=== PATIENT | male | born 1965 | race Two or more races ===

== ENCOUNTER 2017-07-09 01:03 | Emergency (ER) | payer BC, MEDICAID | END 2017-07-09 06:56 | disposition home or self-care (01) | LOC: FTE 01:03 | DX: M54.2 Cervicalgia (principal); M25.511 Pain in right shoulder; M25.512 Pain in left shoulder; I10 Essential (primary) hypertension; F17.210 Nicotine dependence, cigarettes, uncomplicated; Z79.82 Long term (current) use of aspirin | CPT/HCPCS: 99284 ==

== ENCOUNTER 2018-01-02 21:27 | Emergency (ER) | payer BC ==
[2018-01-02] MEDS: AZITHROMYCIN 250 MG TAB PO (22:57)
[2018-01-02] MEDS: DOXYCYCLINE 100 MG TAB PO (22:57)
[2018-01-02] MEDS: KETOROLAC 30 MG INJ IM (22:58)
[2018-01-02] MEDS: CEFTRIAXONE 250 MG INJ IM (22:58)
[2018-01-02 23:12] LABS: URINE BLOOD (Dip) POC Trace-intact (NEGATIVE); URINE GLUCOSE (Dip) POC Negative (NEGATIVE); URINE KETONES (Dip) POC Negative (NEGATIVE); URINE LEUKOCYTE EST (Dip) POC 2+ (NEGATIVE); URINE NITRITE (Dip) POC Positive (NEGATIVE); URINE TOTAL PROTEIN POC Negative (NEGATIVE)
[2018-01-02 23:12] LABS: URINE PH (Dip) POC 7.5 (5.0-8.5)
[2018-01-02 23:26] LABS: ADD UMIC YES; UR ASCORBIC ACID NEGATIVE (NEGATIVE); UR BACTERIA FEW /HPF (NONE SEEN); UR BILIRUBIN (Dip) NEGATIVE (NEGATIVE); UR BLOOD (Dip) NEGATIVE (NEGATIVE); UR CLARITY SLIGHTLY CLOUDY (CLEAR); UR COLOR YELLOW (YELLOW); UR GLUCOSE (Dip) NEGATIVE (NEGATIVE); UR KETONES (Dip) NEGATIVE (NEGATIVE); UR LEUKOCYTE ESTERASE (Dip) 3+ Leu/ul (NEGATIVE); UR NITRITE (Dip) POSITIVE (NEGATIVE); UR RBC 4 /HPF (0-5); UR SPECIFIC GRAVITY (Dip) 1.009 (1.003-1.030); UR TOTAL PROTEIN (Dip) NEGATIVE (NEGATIVE); UR UROBILINOGEN (Dip) NEGATIVE (NEGATIVE); UR WBC 78 /HPF (0-5)
== END 2018-01-03 00:53 | disposition home or self-care (01) ==
LOC: FTE 01-03 00:53
DX: N39.0 Urinary tract infection, site not specified (principal); Z87.448 Personal history of other diseases of urinary system; Z87.891 Personal history of nicotine dependence
CPT/HCPCS: 81001; 81003; 87086; 87591; 96372; 99284-25

== ENCOUNTER 2018-08-13 15:12 | Observation (INO) | payer BC ==
[2018-08-13 16:08] LABS: ADD MAN DIFF? NO
[2018-08-13] MEDS: morphine 4 MG/ML VIAL IV (16:09)
[2018-08-13] MEDS: ONDANSETRON 4 MG INJ IV (16:09)
[2018-08-13] MEDS: ASPIRIN 81 MG TAB PO (16:09)
[2018-08-13] MEDS: SOD CHLORIDE 0.9% 1,000 ML IV ×2 (16:09→18:48)
[2018-08-13 16:11] LABS: BASOPHILS % 0.6 % (0.0-2.0); EOSINOPHILS # 0.2 10^3/ul (0.0-0.5); EOSINOPHILS % 3.4 % (0.0-7.0); HEMATOCRIT 39.1 % (42.0-52.0); HEMOGLOBIN 13.6 g/dl (14.0-18.0); LYMPHOCYTES # 1.6 10^3/ul (0.8-2.9); LYMPHOCYTES % 29.7 % (15.0-51.0); MEAN CORPUSCULAR HEMOGLOBIN 29.8 pg (29.0-33.0); MEAN CORPUSCULAR HGB CONC 34.8 g/dl (32.0-37.0); MEAN CORPUSCULAR VOLUME 85.7 fl (82.0-101.0); MEAN PLATELET VOLUME 12.4 fl (7.4-10.4); MONOCYTE # 0.5 10^3/ul (0.3-0.9); MONOCYTES % 9.1 % (0.0-11.0); PLATELET COUNT 171 10^3/UL (140-415); RED BLOOD COUNT 4.56 10^6/ul (4.70-6.10); RED CELL DISTRIBUTION WIDTH 13.9 % (11.5-14.5)
[2018-08-13 16:11] LABS: WHITE BLOOD COUNT 5.3 10^3/ul (4.8-10.8)
[2018-08-13 16:31] LABS: INR 0.97
[2018-08-13 16:32] LABS: PARTIAL THROMBOPLASTIN TIME 33.8 Sec (23.0-35.0)
[2018-08-13 16:34] LABS: ANION GAP 9 (5-13); BLOOD UREA NITROGEN 12 mg/dl (7-20); CALCIUM 8.6 mg/dl (8.4-10.2); CARBON DIOXIDE 27 mmol/L (21-31); CHLORIDE 107 mmol/L (97-110); CREATININE 0.95 mg/dl (0.61-1.24); Estimated GFR > 60 mL/min (>60); GLUCOSE 91 mg/dl (70-220); POTASSIUM 4.6 mmol/L (3.5-5.1); SODIUM 143 mmol/L (135-144)
[2018-08-13 16:46] LABS: TROPONIN-I < 0.012 ng/ml (0.000-0.120)
[2018-08-13] MEDS: SOD CHLORIDE 0.9% 100 ML ×2 (17:00→18:23)
[2018-08-13] MEDS: IOHEXOL 100 ML (17:00)
[2018-08-13] MEDS ORDERED: ONDANSETRON 4 MG INJ IV ×2 (17:30→18:00)
[2018-08-13] MEDS ORDERED: morphine 2 MG INJ IV (18:00)
[2018-08-13] MEDS ORDERED: DOCUSATE SODIUM 100 MG CAP PO (18:00)
[2018-08-13] MEDS ORDERED: NACL 0.9% 3 ML SYG IV (18:00)
[2018-08-13] MEDS ORDERED: NITROGLYCERIN (SL) 0.4 MG TAB SL (18:00)
[2018-08-13] MEDS ORDERED: MAGNESIUM HYDROXIDE 30ML CUP PO (18:00)
[2018-08-13] MEDS ORDERED: ACETAMINOPHEN 325 MG TAB PO (18:00)
[2018-08-13] MEDS: IOHEXOL 300MG/ML 150 ML BTL (18:23)
[2018-08-13 19:23] LABS: HEMOGLOBIN A1C 5.1 % (0-5.9)
[2018-08-13] MEDS ORDERED: ATROPINE 1 MG/10 ML SYRINGE IV (23:30)
[2018-08-13] MEDS ORDERED: LIDOCAINE 2% JELLY 5 ML TOP (23:30)
[2018-08-13 23:48] LABS: CREATINE KINASE 87 IU/L (23-200)
[2018-08-14 00:01] LABS: CK INDEX 0.5; CK-MB 0.47 ng/ml (0.0-2.4); TROPONIN-I < 0.012 ng/ml (0.000-0.120)
[2018-08-14 03:58] LABS: ADD MAN DIFF? NO
[2018-08-14 04:18] LABS: BASOPHILS % 0.5 % (0.0-2.0); EOSINOPHILS # 0.2 10^3/ul (0.0-0.5); EOSINOPHILS % 4.2 % (0.0-7.0); HEMATOCRIT 38.2 % (42.0-52.0); HEMOGLOBIN 13.5 g/dl (14.0-18.0); LYMPHOCYTES # 1.6 10^3/ul (0.8-2.9); MEAN CORPUSCULAR HEMOGLOBIN 30.1 pg (29.0-33.0); MEAN CORPUSCULAR HGB CONC 35.3 g/dl (32.0-37.0); MEAN CORPUSCULAR VOLUME 85.1 fl (82.0-101.0); MEAN PLATELET VOLUME 12.5 fl (7.4-10.4); MONOCYTE # 0.4 10^3/ul (0.3-0.9); MONOCYTES % 10.3 % (0.0-11.0); PLATELET COUNT 144 10^3/UL (140-415); RED BLOOD COUNT 4.49 10^6/ul (4.70-6.10); RED CELL DISTRIBUTION WIDTH 14.1 % (11.5-14.5)
[2018-08-14 04:18] LABS: WHITE BLOOD COUNT 4.3 10^3/ul (4.8-10.8)
[2018-08-14 04:19] LABS: ANION GAP 4 (5-13); BLOOD UREA NITROGEN 12 mg/dl (7-20); CALCIUM 8.4 mg/dl (8.4-10.2); CARBON DIOXIDE 25 mmol/L (21-31); CHLORIDE 112 mmol/L (97-110); CHOL/HDL RATIO 7.7 RATIO; CHOLESTEROL 226 mg/dl (100-200); CREATININE 0.85 mg/dl (0.61-1.24); Estimated GFR > 60 mL/min (>60); GLUCOSE 133 mg/dl (70-220); HDL CHOLESTEROL 29 mg/dl (28-71); LDL CHOLESTEROL,CALCULATED 172 mg/dl; MAGNESIUM 2.2 mg/dl (1.7-2.5); POTASSIUM 4.2 mmol/L (3.5-5.1); SODIUM 141 mmol/L (135-144); TRIGLYCERIDES 127 mg/dl (0-149)
[2018-08-14 04:24] LABS: CREATINE KINASE 89 IU/L (23-200)
[2018-08-14 04:31] LABS: CK INDEX 0.5; CK-MB 0.44 ng/ml (0.0-2.4); TROPONIN-I < 0.012 ng/ml (0.000-0.120)
[2018-08-14 04:49] LABS: THYROID STIMULATING HORMONE 0.913 MIU/L (0.465-4.680)
[2018-08-14] MEDS: PANTOPRAZOLE (EC) 40 MG TAB PO (05:24)
[2018-08-14] MEDS: ACETAMINOPHEN 325 MG TAB PO (05:28)
[2018-08-14] MEDS: KETOROLAC 15 MG INJ IV (08:49)
[2018-08-14] MEDS: ASPIRIN (EC) 81 MG TAB PO (08:49)
[2018-08-14] MEDS: ENOXAPARIN 40 MG/0.4 ML SYG SC (09:17)
[2018-08-14] MEDS: METOCLOPRAMIDE 10 MG INJ IV (11:50)
[2018-08-14] MEDS ORDERED: ATORVASTATIN 40 MG TAB PO (21:00)
== END 2018-08-14 14:48 | disposition home or self-care (01) ==
LOC: TEL 21:56 → E/R 15:12 → TEL 17:17
DX: R07.89 Other chest pain (principal); I25.10 Atherosclerotic heart disease of native coronary artery without angina pectoris; Z95.5 Presence of coronary angioplasty implant and graft; R00.1 Bradycardia, unspecified; I10 Essential (primary) hypertension; N31.9 Neuromuscular dysfunction of bladder, unspecified; K21.9 Gastro-esophageal reflux disease without esophagitis; Z79.82 Long term (current) use of aspirin
CPT/HCPCS: 36415; 71045; 71275; 74177; 80048; 80061; 82550; 82553; 83036; 83735; 84443; 84484; 85025; 85610; 85730; 93005; 93306; 96374; 96375; 99285-25; G0378